=== PATIENT | female | born 1955 | race American Indian/Alaskan Native ===

== ENCOUNTER 2016-10-17 22:30 | Emergency (ER) | payer SELFPAY ==
[2016-10-17 23:24] VITALS: BP 168/89; PULSE 64; RESP 20; TEMP 98; O2SAT 98
--- NOTE | 2016-10-17 23:40 | C.PDOC ---
History Of Present Illness A 61 year old female, without a significant PMH, presents to the emergency room with complaints of right lower leg swelling for the last few days. Patient reports that she thinks an insect bit her 3 days ago, Patient denies any fever, chills, shortness of breath, cough, any sensory or vascular changes, a suspected DVT, trauma/injury, or any other complaints. Time Seen by Provider: 10/17/16 23:11 Chief Complaint (Nursing): Abnormal Skin Integrity History Per: Patient Onset/Duration Of Symptoms: Gradual Current Symptoms Are (Timing): Worse Location Of Injury: Right: Leg Quality Of Symptoms: Painful, Swollen Severity: Mild Recent travel outside of the [place]: No Past Medical History Reviewed: Historical Data, Nursing Documentation, Vital Signs Vital Signs: Last Vital Signs Temp 98.0 F 10/17/16 23:21 Pulse 64 10/17/16 23:21 Resp 20 10/17/16 23:54 BP 168/89 H 10/17/16 23:21 Pulse Ox 98 10/18/16 01:35 - Medical History PMH: No Chronic Diseases Other PMH: Morbid obesity Family History: States: No Known Family Hx - Social History Hx Tobacco Use: No Hx Alcohol Use: No Hx Substance Use: No - Immunization History Hx Tetanus Toxoid Vaccination: No Hx Influenza Vaccination: No Hx Pneumococcal Vaccination: No Review Of Systems Except As Marked, All Systems Reviewed And Found Negative. Constitutional: Negative for: Fever, Chills ENT: Negative for: Throat Pain Cardiovascular: Negative for: Chest Pain, Palpitations, Orthopnea Respiratory: Negative for: Cough, Shortness of Breath Gastrointestinal: Negative for: Nausea, Vomiting Genitourinary: Negative for: Dysuria, Frequency, Incontinence Musculoskeletal: Negative for: Neck Pain, Back Pain Skin: Positive for: Rash Neurological: Negative for: Weakness, Numbness, Altered Mental Status, Headache , Dizziness Physical Exam - Physical Exam Appears: Well, Non-toxic, No Acute Distress Skin: Normal Color, Warm, Dry, Other (diffuse erythema to Right lower leg medial aspect with palpable nodules#2, slightly tender. Ni proximal streaking. No flactulance.) Eye(s): bilateral: Normal Inspection Nose: Normal, No Discharge Oral Mucosa: Moist, No Drooling Throat: Normal Neck: Normal, Normal ROM, Supple Cardiovascular: Rhythm Regular Respiratory: Normal Breath Sounds, No Stridor, No Wheezing Gastrointestinal/Abdominal: Normal Exam, Soft, No Tenderness Back: Normal Inspection, No CVA Tenderness Extremity: Normal ROM, No Pedal Edema, No Calf Tenderness, No Deformity Extremity: Bilateral: Atraumatic Neurological/Psych: Oriented x3, Normal Speech, Normal Motor, Normal Sensation, Normal Reflexes ED Course And Treatment O2 Sat by Pulse Oximetry: 98 Pulse Ox Interpretation: Normal Progress Note: FSBS 99. On re-evaluation, pt is afebrile, hemodynamicaly stable. Non-toxic. Tolerate Po well in ED. PusleOx 98% RA. ENT: no acute findings. Lungs: CTA B/L, BS equal B/L. Neck: (-) meningeal sign. Right LE: exam c/w tender noduler with surrounding erythema over medial aspect lower leg r /o cellulitis vs DVT. FAROM, no neurovascular deficits. Pt was offered Doppler US to r/o DVT RLE ,which is unavailable in [facility] at present time. Offered Lovenox inj, refused and prefers return to ED tomorrow AM. Pt will be discharge now. Disposition Counseled Patient/Family Regarding: Diagnosis, Need For Followup, Rx Given - Disposition Referrals: at [facility] [Outside] Disposition: HOME/ ROUTINE Disposition Time: 23:40 Condition: STABLE Additional Instructions: RETURN TO ED TOMORROW FOR DOPPLER US OF RIGHT LEG TO RULE OUT BLOOD CLOTS. TAKE MEDICATION PRESCRIBED WARM COMPRESSES TO AREA 2-3 TIMES DAILY FOR 5 MINUTES KEEP LEG UP/ELEVATED FOR 1WEEK, AVOID PROLONG WALKING Prescriptions: Doxycycline Hyclate 100 mg PO Q12 #14 tab Instructions: Cellulitis (ED) - Clinical Impression Clinical Impression: Cellulitis - Scribe Statement The provider has reviewed the documentation as recorded by the Scribe Jones French All medical record entries made by the Angieibe were at my direction and personally dictated by me. I have reviewed the chart and agree that the record accurately reflects my personal performance of the history, physical exam, medical decision making, and the department course for this patient. I have also personally directed, reviewed, and agree with the discharge instructions and disposition.
== END 2016-10-17 23:54 | disposition home or self-care (01) ==
LOC: C.ER 22:30
DX: L03.115 Cellulitis of right lower limb (principal)